=== PATIENT | male | born 1960 | race Caucasian/White ===

== ENCOUNTER 2017-11-23 10:01 | Day surgery (SDC) | payer BC ==
[2017-11-23] MEDS ORDERED: MIDAZOLAM 2 MG/2 ML VIAL IVP ONE (10:04)
[2017-11-23] MEDS ORDERED: fentaNYL 100 MCG/2 ML INJ IVP ONE (10:04)
[2017-11-23] MEDS ORDERED: BENZOCAINE UNIT DOSE SPRAY HURRICAINE MM ONE (10:04)
[2017-11-23] MEDS ORDERED: NS 500 ML IV ONE (10:04)
[2017-11-23] MEDS ORDERED: ATROPINE SULFATE 1 MG/10 ML SYR IVP ONE (10:04)
--- NOTE | 2017-11-23 10:22 | CPEKG ---
Heart Rate: 74 RR Interval: 811 QRSD Interval: 90 QT Interval: 400 QTC Interval: 444 QRS [place]: 23 T Wave [place]: 11 EKG Severity - ABNORMAL ECG - EKG Impression: ATRIAL FIBRILLATION, V-RATE 65-81 Electronically Signed By: Pili Mckay 23-Nov-2017 18:12:12
[2017-11-23 10:41] LABS: INR 1.2 (0.83-1.16); PROTIME(PATIENT) 15.4 SEC (12.0-15.0)
--- NOTE | 2017-11-23 11:02 | PDHPUP ---
History & Physical Update H&P update statement: This history and physical update is based on an assessment of the patient which was completed after admission or registration (within 24 hours), but prior to the surgery/procedure. H&P update: H&P reviewed & patient examined, no change in patient's condition since H&P completed
[2017-11-23] MEDS ORDERED: LIDOCAINE 2% 100 MG/5 ML SYR ONE (11:16)
[2017-11-23] MEDS ORDERED: PROPOFOL 200 MG/20 ML VIAL ONE ×2 (11:16→11:30)
--- NOTE | 2017-11-23 11:18 | PDANEPAE ---
ANE History of Present Illness Patient presents for EMILY/Cardioversion ANE Past Medical History - Cardiovascular History Hx Arrhythmias: Yes - Pulmonary History Hx Sleep Apnea: No ANE Review of Systems Review of Systems: - Exercise capacity Exercise capacity: >=4 METS ANE Patient History - Allergies Allergies/Adverse Reactions: No Known Allergies Allergy (Unverified 11/23/17 10:04) - NPO status NPO Status: no food or drink >8 hours - Anes Hx Anes Hx: no prior problems - Smoking Hx Smoking Status: Never smoked ANE Labs/Vital Signs - Labs Result Diagrams: 11/23/17 10:20 - Vital Signs Height: 187.96 cm Weight: 88 kg ANE Physical Exam - Airway Neck exam: FROM Mallampati Score: Class 2 Mouth exam: normal dental/mouth exam - Pulmonary Pulmonary: no respiratory distress - Cardiovascular Cardiovascular: irregularly irregular - ASA Status ASA Status: II ANE Anesthesia Plan Anesthesia Plan: GA with mask (GA with mask, standard monitors, RBA discussed. )
--- NOTE | 2017-11-23 11:41 | PDTEE1 ---
EMILY Cardioversion Procedure Procedure: electrical cardioversion, transesophageal echo Indications: atrial fibrillation Consent: signed and in chart Anticoagulation: eliquis Procedural Details: After consent for anesthesia, EMILY, and possible cardioversion were signed, the patient was placed in the left lateral decub position. Vitals were closely monitored, and EMILY probe was placed without difficulty. 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 Would have patient seen back in cardiology in about one week. Maintain [employer] monitor
--- NOTE | 2017-11-23 11:42 | POSTANESTH ---
Post Anesthetic Evaluation Cardiovascular Status: Similar to Pre-Op Cond Respiratory Status: Similar to Pre-op Cond. Level of Consciousness/Mental Status: Mildly Sleepy, Arousable Pain Control: Adequate, Prn Tx Ordered Nausea/Vomiting Control: Adequate, Prn Tx Ordered Complications Possibly Related to Anesthesia: None Noted
--- NOTE | 2017-11-23 11:53 | CPEKG ---
Heart Rate: 57 RR Interval: 1053 P-R Interval: 200 QRSD Interval: 90 QT Interval: 432 QTC Interval: 421 P [place]: 49 QRS [place]: 33 T Wave [place]: 18 EKG Severity - NORMAL ECG - EKG Impression: SINUS RHYTHM EKG Impression: COMPARED WITH 11/23/2017 AT 10:20 AM, SINUS RHYTHM HAS BEEN RESTORED Electronically Signed By: Pili Mckay 23-Nov-2017 18:12:07
== END 2017-11-23 13:38 | disposition home or self-care (01) ==
LOC: FCATH 10:01
PROVIDERS: ATTEND Internal Medicine Cardiovascular Disease
PROC: 5A2204Z Restoration of Cardiac Rhythm, Single (ICD-10-PCS; principal; 2017-11-23)
PROC: B245ZZ4 Ultrasonography of Left Heart, Transesophageal (ICD-10-PCS; principal; 2017-11-23)
DX: I48.91 Unspecified atrial fibrillation (principal); I34.1 Nonrheumatic mitral (valve) prolapse; Z79.01 Long term (current) use of anticoagulants; Z79.82 Long term (current) use of aspirin
CPT/HCPCS: J0461; J2001; J2704